=== PATIENT | male | born 1995 | race American Indian/Alaskan Native ===

== ENCOUNTER 2020-01-24 23:06 | Emergency (ER) | payer SELFPAY ==
[2020-01-24 23:11] VITALS: BP 150/79; PULSE 78; TEMP 36.7; O2SAT 96
--- NOTE | 2020-01-24 23:11 | W.ED.GENAD ---
Discharge Plan Disposition Patient Disposition: HOME Condition: Good Discharge Details Chief Complaint: RespSymp Clinical Impression: Cough ED Provider: Eric Greenfield Meds and New Rx's Prescriptions: New benzonatate 100 mg Capsule 100 mg PO TID PRN PRNQty: 20 RF: 0 Continued Jennifer-[place]ilin Gold 344-1,050-1,000 mg Tablet, Effervescent RF: 0 Discharge Instructions Additional Instructions: Since most of your symptoms have resolved and you have no chest pain or shortness of breath with clear lungs and normal oxygen saturation suspect this is just residual cough related to the viral illness you had previously. This may sometimes linger for a couple weeks after the illness resolves. May use Tessalon Perles for cough. Should follow-up with primary care in 2 weeks if not better. Should return to the emergency department if you develop high fever, shortness of breath, chest pain, mental status changes. We will put you on list for care management to help arrange for primary care physician in the area. Referrals: Care Management [Provider Group] Medical Decision Making Patient presenting with residual cough following what sounds like a viral illness. All other symptoms resolved. He is no longer febrile. He has no shortness of breath. He has normal pulse oximetry and vitals except for elevated blood pressure. His lungs are clear throughout. I do not think he has superinfection with pneumonia at this point. He looks well. And this is all just residual cough which may persist for [address] him on Tessalon and refer to care management for primary care referral in 2 weeks if not better. Return to ED if he develops high fevers, shortness of breath, chest pain, mental status changes, other concerns or problems. HPI General Mode of arrival: ambulatory. Date/Time Provider Initiated Documentation: 01/24/20 23:10. Limitations to Documentation: no limitations. Information obtained by: patient, family and RN notes reviewed. HPI Narrative: Patient presents to ED with complaint of cough. Patient reports that 9 days ago he came down with an illness that included fever, congestion, cough, sore throat, vomiting and diarrhea. Those symptoms have resolved and he is left with a residual cough. He denies having any shortness of breath except while having coughing fit. He denies any chest pain. He denies any further fevers or congestion. He stopped smoking 6 months ago. He has no significant past medical history. He is otherwise healthy but does not have a primary care physician. There is no travel outside of [place] and no known exposure to coronavirus. Related Data Home Medications Medication Instructions Recorded Confirmed Jennifer-[place] Gold tab 01/24/20 benzonatate 100 mg PO TID PRN PRN #20 cap 01/24/20 Previous Rx's Medication Instructions Recorded benzonatate 100 mg PO TID PRN PRN #20 cap 01/24/20 Allergies Allergy/AdvReac Type Severity Reaction Status Date / Time No Known Allergies Allergy Unverified 01/24/20 23:14 Review of Systems Narrative: As documented in HPI otherwise negative as below. Const: no fever, chills, weakness Resp: cough; no SOB, pleuritic pain CV: no CP, diaphoresis, edema, syncope GI: no abdominal pain, nausea, vomiting, diarrhea Neuro: no headache, numbness, focal weakness, confusion PFSH Medical History No active medical problems (Acute) Surgical History No significant past surgical history (Acute) Social History Smoking/Tobacco Use Status: Former Tobacco Use Alcohol Intake: never Drug use: Never Substance use type: does not use Do you feel safe at home: Yes Do you feel safe in your relationship?: Yes Exam Narrative Exam Narrative: Vitals: Afebrile. Elevated blood pressure otherwise normal vitals and normal room air pulse oximetry. Const: WDWN male in NAD. HEENT: NC/AT. Normal facial exam. Normal TMs bilaterally. Normal oropharynx. Eyes: Normal conjunctiva and sclera. Neck: Supple. Trachea midline. No adenopathy. Lungs: Normal respiratory effort. Lungs are clear. No wheezing or rhonchi. Cor: RRR without murmur/gallop. Neuro: A+O x 3. Normal speech, mentation, gait. Cranial nerves II - XII grossly intact. No gross motor or sensory deficit.
[2020-01-24] MEDS: Benzonatate 100 MG CAP PO (23:30)
== END 2020-01-24 23:35 | disposition home or self-care (01) ==
LOC: ER 23:49
PROVIDERS: Emergency Provider Emergency Medicine
DX: R05 Cough (principal)
CPT/HCPCS: 99283

== ENCOUNTER 2020-01-29 22:04 | Emergency (ER) | payer SELFPAY ==
[2020-01-29 22:08] VITALS: BP 167/92; PULSE 91; RESP 18; TEMP 36.6; O2SAT 99
--- NOTE | 2020-01-29 22:13 | ED.GENADUL_ITS ---
Discharge Plan Disposition Patient Disposition: HOME Condition: Stable Discharge Details Chief Complaint: GenMedical Clinical Impression: Sinusitis Primary Care Provider: None,None ED Provider: Diaz Kellogg Home Meds and New Rx's Prescriptions: New amoxicillin-pot clavulanate [Augmentin] 875-125 mg tablet 1 tab PO BID Qty: 14 RF: 0 Continued Jennifer-[place] Gold 344-1,050-1,000 mg Tablet, Effervescent RF: 0 benzonatate 100 mg Capsule 100 mg PO TID PRN PRNQty: 20 RF: 0 Discharge Instructions Instructions: Sinusitis (ED) Additional Instructions: if you feel more ill, have difficulty breathing or high fevers return to the emergency department if you are not better after the antibiotic see either your primary care provider or an ears, nose and throat specialist Medical Decision Making 24 yo male with no chronic medical problems and no recent travel comes in with sinus congestion, runny nose and cough without fevers for 4 weeks. Denies any rashes, vomit abdominal pain, urinary symptoms. Is in no distress on exam with clear lung sounds, no murmurs, clear rhinorrhea, normal tm's, pain with percussion over sinuses, eomi. NO skin swelling. Seems most consistent with sinusitis and given over 10 days of symptoms will start augmentin and advised to f/u with pcp or ENT if not better in a week and return precautions given Differential Diagnosis Differential Diagnosis: sinusitis, uri, aom HPI General Mode of arrival: ambulatory . Date/Time Provider Initiated Documentation: 01/29/20 22:06 . Limitations to Documentation: no limitations . Information obtained by: patient . History of Present Illness 24 year old M presents to the emergency department with the chief complaint of cough, described as moderate, Patient started experiencing this week(s) (2) No relieving factors improve symptom(s), No exacerbating factors reported . Patient did receive the following treatments prior to arrival, none Related Data Home Medications Medication Instructions Recorded Confirmed Jennifer-[place] Gold tab 01/24/20 benzonatate 100 mg PO TID PRN PRN #20 cap 01/24/20 amoxicillin-pot clavulanate 1 tab PO BID #14 tab 01/29/20 [Augmentin] Previous Rx's Medication Instructions Recorded benzonatate 100 mg PO TID PRN PRN #20 cap 01/24/20 amoxicillin-pot clavulanate 1 tab PO BID #14 tab 01/29/20 [Augmentin] Allergies Allergy/AdvReac Type Severity Reaction Status Date / Time No Known Allergies Allergy Unverified 01/24/20 23:14 General Stated Complaint: GenMedical ZARINA: 4 Review of Systems All systems reviewed & are unremarkable except as noted in HPI and below Constitutional Constitutional: Denies chills, Denies fever(s) and Denies weakness Cardiovascular Cardiovascular: Denies chest pain Gastrointestinal Gastrointestinal: Denies abdominal pain, Denies nausea and Denies vomiting Musculoskeletal Musculoskeletal: Denies joint swelling Integumentary/Breasts Skin/Breast: Denies rash Neurologic Neurologic: Denies weakness [facility] Social History Smoking/Tobacco Use Status: Former Tobacco Use Alcohol Intake: never Drug use: Never Substance use type: does not use Do you feel safe at home: Yes Do you feel safe in your relationship?: Yes Exam Const General: no acute distress Orientation: alert HENMT Head: normal to inspection Ears: external ears normal General nose exam: external nose normal Mouth: moist mucous membranes Eyes General: appearance normal, both eyes and all related structures Neck Neck: normal visual inspection Resp Effort & Inspection: normal respiratory effort and able to speak in complete sentences Cardio Rate: regular rate Skin General skin exam: no rashes or lesions noted Neuro General: alert and oriented x3 Extrem General: normal to inspection Psych Mental Status: mental status grossly normal Course Vital Signs Vital signs: Vital Signs Temperature 36.6 C 01/29/20 22:08 Pulse 91 H 01/29/20 22:08 Respiratory Rate 18 01/29/20 22:08 Blood Pressure 167/92 H 01/29/20 22:08 Pulse Oximetry 99 01/29/20 22:08 Temperature 36.6 C 01/29/20 22:08 Temperature Source Temporal Artery Scan 01/29/20 22:08 Pulse 91 H 01/29/20 22:08 Respiratory Rate 18 01/29/20 22:08 Blood Pressure 167/92 H 01/29/20 22:08 Pulse Oximetry 99 01/29/20 22:08 Oxygen Delivery Method Room Air 01/29/20 22:08 Oxygen Flow Rate 0 01/29/20 22:08 Pain Level 4 01/29/20 22:08
[2020-01-29] MEDS: Amoxicillin 875/Clav. 125 TAB PO (22:24)
[2020-01-29 22:31] VITALS: BP 142/72
== END 2020-01-29 22:30 | disposition home or self-care (01) ==
PROVIDERS: Emergency Provider Emergency Medicine
DX: J01.90 Acute sinusitis, unspecified (principal)
CPT/HCPCS: 99283

== ENCOUNTER 2020-06-09 14:55 | Emergency (ER) | payer SELFPAY ==
[2020-06-09 15:09] VITALS: BP 143/96; PULSE 72; RESP 18; TEMP 36.8; O2SAT 99
[2020-06-09 15:46] VITALS: BP 128/89; PULSE 71; RESP 18; TEMP 36.4; O2SAT 96
--- NOTE | 2020-06-09 15:47 | W.ED.GENAD ---
Discharge Plan Disposition Patient Disposition: HOME Condition: Stable Discharge Details Chief Complaint: RespSymp Clinical Impression: URI (upper respiratory infection), Seasonal allergies, Patient requested test Primary Care Provider: None,None ED Provider: Tami Coon Home Meds and New Rx's Prescriptions: No Action No Known Home Meds RF: 0 Discharge Instructions Instructions: Upper Respiratory Infection (ED), Allergies (ED) Additional Instructions: Drink plenty of fluids and get plenty of rest. Alternate tylenol and motrin as needed and directed for pain. Take [id number] medication for your allergies or possible early upper respiratory tract infection such as Nasonex, Flonase, Claritin, Zyrtec, Kezia, Sudafed, etc. You will be notified of your COVID-19 testing result when available. You can also register on the online patient portal to find your result and print it for your employer. You can also have the emergency department fax the result to your employer or return to the emergency department for a hard copy of this result if you are unable to print it from home and medical records not available. Follow-up with your primary care doctor in 1 week. Return to the emergency department with any worsening or new concerning symptoms. Stand Alone Forms: PENDING COVID-19 TESTING Discharge Data Discharge Date/Time-TO BE ENTERED AT DEPARTURE: 06/09/20 16:50 Discharge Physician: Tami Coon Medical Decision Making 24yo M w/ no past medical history presents for COVID testing and URI vs allergy symptoms. He appears nontoxic w/ normal vitals. No acute findings on exam. Do not see an indication for additional labs or imaging or acute treatment. He is advised regarding rest, fluids, and over the counter treatments as needed and that he will be informed about his test result when available. Advised to follow up with the primary care doctor for re-evaluation as needed. Usual and customary return precautions given prior to discharge. Medical Records Medical records reviewed: Yes I reviewed the patient's medical records. HPI General Mode of arrival: ambulatory. Date/Time Provider Initiated Documentation: 06/09/20 15:07. Limitations to Documentation: no limitations. Information obtained by: patient. 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 He states he had exposure to the recently diagnosed COVID positive patient at the [facility] this week. Pt had a COVID test at that time which is read as negative. He states he woke up this morning with stuffy nose, nasal congestion and post nasal drip and called his stewarding supervisor who advised him to not come to work and to go to the emergency department for repeat COVID testing. Patient states his symptoms feel similar to his seasonal allergies. Patient denies any fever, headache, neck pain, sore throat, ear pain, chest pain, shortness of breath, vomiting, diarrhea, abdominal pain or urinary symptoms. Related Data Home Medications Medication Instructions Recorded Confirmed Unknown [No Known Home Meds] 06/09/20 06/09/20 Allergies Allergy/AdvReac Type Severity Reaction Status Date / Time bee venom protein (honey bee) Allergy Unverified 06/09/20 15:37 cat dander AdvReac Itching Unverified 06/09/20 15:37 mold AdvReac Unverified 06/09/20 15:37 General Stated Complaint: RespSymp ZARINA: 4 Review of Systems All systems reviewed & are unremarkable except as noted in HPI and below Constitutional Constitutional: Reports as per HPI, Denies chills and Denies fever(s) Eyes Eyes: Denies blurry vision ENT Ears, Nose, Mouth, and Throat: Denies dizziness, Reports nasal congestion, Reports nasal discharge, Reports post nasal drip, Denies sore throat and Denies throat swelling Cardiovascular Cardiovascular: Denies chest pain and Denies dyspnea Respiratory Respiratory: Denies cough and Denies dyspnea Gastrointestinal Gastrointestinal: Denies abdominal pain, Denies diarrhea and Denies vomiting Genitourinary Genitourinary: Denies hematuria and Denies dysuria Musculoskeletal Musculoskeletal: Denies back pain and Denies numbness Integumentary/Breasts Skin/Breast: Denies lesions and Denies rash Neurologic Neurologic: Denies dizziness, Denies localized weakness and Denies numbness Allergic/Immunologic Allergic/Immunologic: Denies throat swelling [facility] Social History Smoking/Tobacco Use Status: Former Tobacco Use Alcohol Intake: never Drug use: Never Substance use type: does not use Do you feel safe at home: Yes Do you feel safe in your relationship?: Yes Exam Const General: cooperative and healthy appearing Orientation: alert and awake HENMT Head: normal to inspection Ears: hearing grossly normal bilaterally, external ears normal and TM's normal bilaterally General nose exam: external nose normal Face and sinus: normal facial exam Mouth: oral mucosae normal Teeth and gingiva: dentition normal Throat: posterior oropharynx normal Eyes General: appearance normal, both eyes and all related structures Eyelids: eyelids normal EOM: EOM intact bilaterally Neck Neck: normal visual inspection Lymphatic: no lymphadenopathy noted Chest Chest: normal inspection of the chest Resp Effort & Inspection: normal respiratory effort and able to speak in complete sentences Auscultation: clear to auscultation bilaterally Cardio Rate: regular rate Rhythm: regular rhythm GI Inspection: normal to inspection Palpation: soft, not firm, no guarding, no hepatosplenomegaly, no masses and nontender Auscultation: normal bowel sounds Skin General skin exam: no rashes or lesions noted Neuro General: patient alert and patient awake Cognition: normal cognition Speech: speech normal Gait: normal gait Motor: muscle tone normal throughout Sensory Exam: no sensory deficits noted Extrem General: normal to inspection, full ROM and capillary refill normal Psych Appearance: grossly normal Mental Status: mental status grossly normal Speech and Movement: speech and movement normal Affect: normal affect Thought Process: normal Course Vital Signs Vital signs: Vital Signs Temperature 98.2 F 06/09/20 15:09 Pulse 72 06/09/20 15:09 Respiratory Rate 18 06/09/20 15:09 Blood Pressure 143/96 H 06/09/20 15:09 Pulse Oximetry 99 06/09/20 15:09 Temperature 98.2 F 06/09/20 15:09 Temperature Source Skin 06/09/20 15:09 Pulse 72 06/09/20 15:09 Respiratory Rate 18 06/09/20 15:09 Respiratory Effort Non-Labored 06/09/20 15:42 Respiratory Depth Normal 06/09/20 15:42 Blood Pressure 143/96 H 06/09/20 15:09 Pulse Oximetry 99 06/09/20 15:09 Oxygen Delivery Method Room Air 06/09/20 15:09 Oxygen Flow Rate 0 06/09/20 15:09 Pain Level 0 06/09/20 15:09 Lab/Test Results Lab/Test Results: Laboratory Tests Range/Units 06/09/20 15:25 COVID-19 PCR Cancelled Nasopharyn COVID-19 PCR Cancelled Ref Test Perform Site Cancelled
--- NOTE | 2020-06-09 16:50 | NUR.NOTE ---
Nursing Note: copied referal to caremanagement 06/09/20
[2020-06-15 22:36] LABS: SARS-CoV-2 RNA Undetected (Undetected); SARS-CoV-2 Specimen Source Nasopharynx
--- NOTE | 2020-06-16 08:57 | ED.FU.B_ITS ---
Date of service: 06/16/20 Time of Service: 08:59 Spoke with patient and relayed negative Covid results. Patient verbalized understanding and requests work note to return back to work. Will write patient a note to return back to work. He also requests a paper copy of the results and I will leave this at the lockstitch front maker of the ER if patient wants to come and pick it up.
== END 2020-06-09 16:50 | disposition home or self-care (01) ==
LOC: ER 16:51
PROVIDERS: Emergency Provider Physician Assistant
DX: J06.9 Acute upper respiratory infection, unspecified (principal); J30.2 Other seasonal allergic rhinitis; Z20.828 Contact with and (suspected) exposure to other viral communicable diseases
CPT/HCPCS: 99282; U0003

== ENCOUNTER 2022-09-18 09:58 | Outpatient (CLI) | payer BC, SELFPAY ==
--- NOTE | 2022-09-18 09:45 | RT.EKG_ITS ---
APPROVED REPORT Exam: Resting ECG Reason for Exam: LEFT SIDED CHEST PAIN Patient Location: O HR:56 bpm ECG Measurements Heart Rate 56 AXIS ND 168 P 12 QRSd 99 QRS 64 QT 383 T 35 QTc 370 Conclusion Sinus rhythm...normal P axis, V-rate 50- 99 Normal Electrocardiogram
== END 2022-09-18 09:59 | disposition home or self-care (01) ==
LOC: DI.CM 09:59
PROVIDERS: Visit Provider Physician Assistant
DX: R07.9 Chest pain, unspecified (principal)
CPT/HCPCS: 93010

== ENCOUNTER 2022-09-19 08:09 | Emergency (ER) | payer BC, SELFPAY ==
--- NOTE | 2022-09-19 08:00 | RT.EKG_ITS ---
APPROVED REPORT Exam: Resting ECG Reason for Exam: chest pain Patient Location: E HR:71 bpm ECG Measurements Heart Rate 71 AXIS DE 171 P 21 QRSd 95 QRS 61 QT 343 T 53 QTc 373 Conclusion Sinus rhythm...normal P axis, V-rate 60- 99 S1Q3
[2022-09-19 08:13] VITALS: BP 149/90; PULSE 77; RESP 15; TEMP 36.8; O2SAT 99
[2022-09-19 08:16] VITALS: O2SAT 99
[2022-09-19 08:17] VITALS: BP 149/90; PULSE 70; PULSE 71; RESP 11; RESP 15; O2SAT 98
[2022-09-19 08:20] VITALS: PULSE 76; RESP 12; O2SAT 99
[2022-09-19 08:30] VITALS: PULSE 79; RESP 19; O2SAT 98
--- NOTE | 2022-09-19 08:30 | DI.RAD_ITS ---
Exam(s) XR CHEST 2V PA LATERAL EXAM: XR CHEST 2V PA LATERAL CLINICAL HISTORY: chest pain TECHNIQUE: 2D digital imaging was performed of the chest. Two images were obtained. PA and lateral views were obtained. COMPARISON: No exams were available for comparison FINDINGS: MEDIASTINUM: Normal. HEART: Normal. PULMONARY VASCULATURE: Normal. LUNGS: Clear. PLEURAL SPACE: No pleural effusion or pneumothorax. BONE:Within normal limits for the patient's age. OTHER FINDINGS:Normal. IMPRESSION: No acute pulmonary findings. DATA REPOSITORY: RADIATION DOSE DELIVERED:
--- NOTE | 2022-09-19 08:38 | ED.GENADUL_ITS ---
Discharge Plan Disposition Patient Disposition: HOME Condition: Improving Discharge Details Clinical Impression: Atypical chest pain, Respiratory tract infection Primary Care Provider: None,None ED Provider: Jerry Rahman Home Meds and New Rx's Prescriptions: Continued amoxicillin-pot clavulanate 875-125 mg tablet 1 tab PO Q12H Qty: 14 0RF benzonatate 100 mg capsule 100 mg PO TID PRN (Reason: cough) Qty: 14 0RF azithromycin 250 mg tablet See Rx Instructions PO .COMPLEX Qty: 6 0RF Rx Instructions: For 250 mg dose pack: take 500 mg today (day 1), then 250 mg for 4 days (days 2-5) PO Discharge Instructions Instructions: Chest Pain (ED) Additional Instructions: At this time we are not seeing any worrisome findings on your EKG or your lab work. If you develop any new or significant worsening of symptoms it is very important that you return to the emergency department for further evaluation. Please continue the recommendation to follow-up and establish primary care provider for further monitoring of your blood pressure and other medical needs. Referrals: [facility] [Provider Group] Discharge Data Discharge Date/Time-TO BE ENTERED AT DEPARTURE: 09/19/22 09:53 Medical Decision Making Patient presenting to the emergency department for chief complaint of chest pain. Patient states that actually his chest pain has been resolving this morning but due to his 's concern he is here for evaluation. He does state that he was seen in the urgent care yesterday for this and they saw EKG changes that made them encourage him to have an emergency evaluation with blood work. They did start patient on antibiotics and antitussive. Patient has history of slight hypertension which is mostly improved since he lost weight. Otherwise patient has significant family medical history for cardiac but otherwise unremarkable personally. Patient reports history of greater than 3 weeks of upper respiratory illness with initially testing over a week ago and was COVID- positive. He ran out of test on Friday which he was still positive at that time. Chest pain began just 3 days ago otherwise he stated it felt like the other times he had COVID or general viral illnesses. Physical exam is unremarkable with no worrisome findings. Given that patient has recently had COVID we will perform EKG and cardiac work-up and include D-dimer. Patient wells score is negative but will do D-dimer given recent COVID illness. We will also perform a BNP to evaluate for any sort of heart strain secondary to concern of potential PE. Please see physician interpretation for full interpretation of EKG but patient is in sinus rhythm and does not meet acute criteria for STEMI. Reviewed patient's labs and CBC is unremarkable, D-dimer is negative, CMP is also unremarkable, negative troponin, BNP of 21. Still pending chest x-ray results. Patient remained stable. Given that patient has had chest pain for 3 days with it now starting to resolve I do not feel that a second troponin is needed. Reviewed chest x-ray and radiologist interpretation and patient has no acute pulmonary findings. Patient still endorsing that he is pain-free. I feel this is reassuring and that patient can be safely discharged. Did discuss with patient follow-up with primary care provider which she states he already has paperwork for [facility] and is in process of returning that to them to establish a follow-up. Patient encouraged to continue to monitor symptoms and return immediately for any new or worsening symptoms. After discussion of diagnosis and plan of care patient has no further needs, questions, or concerns and states clear understanding to return to the emergency department for any worsening symptoms. This documentation was generated using [employer] system, please disregard any oddities of phrase or misspellings. Medical Records Medical records reviewed: Yes I reviewed the patient's medical records. Imaging Data Radiologic Study: Attestation: I personally reviewed and interpreted this imaging study as follows: Imaging: X-Ray Radiologist's impression: FINDINGS: MEDIASTINUM: Normal. HEART: Normal. PULMONARY VASCULATURE: Normal. LUNGS: Clear. PLEURAL SPACE: No pleural effusion or pneumothorax. BONE:Within normal limits for the patient's age. OTHER FINDINGS:Normal. IMPRESSION: No acute pulmonary findings. Lab Data Lab results reviewed: Yes I reviewed the patient's lab results. HPI General Mode of arrival: ambulatory . Date/Time Provider Initiated Documentation: 09/19/22 08:17 . Limitations to Documentation: no limitations . Information obtained by: RN notes reviewed and old records reviewed . History of Present Illness 27 year old M presents to the emergency department with the chief complaint of chest pain , described as mild, Quality is described as aching and other (burning ), and is localized to the chest. Patient neck. Patient started experiencing this day(s) (3) and it has been constant (improved today). No relieving factors improve symptom(s), No exacerbating factors reported . Patient did receive the following treatments prior to arrival, none Related Data Home Medications Medication Instructions Recorded Confirmed amoxicillin 875 mg-potassium 1 tab PO Q12H #14 tabs 09/18/22 09/19/22 clavulanate 125 mg tablet azithromycin 250 mg tablet See Rx Instructions PO .COMPLEX #6 09/18/22 09/19/22 tabs benzonatate 100 mg capsule 100 mg PO TID PRN cough #14 caps 09/18/22 09/19/22 Previous Rx's Medication Instructions Recorded amoxicillin 875 mg-potassium 1 tab PO Q12H #14 tabs 09/18/22 clavulanate 125 mg tablet azithromycin 250 mg tablet See Rx Instructions PO .COMPLEX #6 09/18/22 tabs benzonatate 100 mg capsule 100 mg PO TID PRN cough #14 caps 09/18/22 Allergies Allergy/AdvReac Type Severity Reaction Status Date / Time bee venom protein (honey bee) Allergy Unverified 09/19/22 08:20 cat dander AdvReac Itching Unverified 09/19/22 08:20 mold AdvReac Unverified 09/19/22 08:20 General Stated Complaint: Chest Pain ZARINA: 2 Review of Systems Constitutional Constitutional: Reports chills, Denies fever(s) and Denies malaise ENT Ears, Nose, Mouth, and Throat: Reports nasal congestion and Denies sore throat Cardiovascular Cardiovascular: Reports as per HPI, Reports chest pain, Denies chest pain with activity, Denies syncope, Denies edema, Denies irregular heart rhythm, Denies leg edema, Denies lightheadedness, Denies palpitations, Denies dyspnea and Denies dyspnea on exertion Respiratory Respiratory: Denies cough, Denies hemoptysis, Denies dyspnea and Denies dyspnea on exertion Gastrointestinal Gastrointestinal: Denies abdominal pain, Denies nausea and Denies vomiting Neurologic Neurologic: Denies syncope Psychiatric Psychiatric: Denies anxiety Endocrine Endocrine: Denies cold intolerance, Denies heat intolerance and Denies palpitations PFSH All Active Problems (Updated 09/19/22 @ 09:45 by Jerry Rahman NP) Atypical chest pain (Acute) Respiratory tract infection (Acute) Medical History (Updated 09/19/22 @ 09:45 by Jerry Rahman NP) No active medical problems Surgical History No significant past surgical history Social History Smoking/Tobacco Use Status: Current every day Tobacco Type: smokeless tobacco Smoking risk assessment performed?: Yes Alcohol Intake: never Drug use: Never Substance use type: does not use Do you feel safe at home: Yes Do you feel safe in your relationship?: Yes Exam Const General: cooperative, healthy appearing, comfortable, no acute distress, not diaphoretic and not ill appearing Nutritional Appearance: average body habitus Orientation: alert, awake and oriented x3 Limitations: mental status not altered Neck Neck: normal visual inspection, full ROM, trachea midline, supple and no anterior neck swelling Thyroid: thyroid normal Carotids: normal carotid upstroke and no bruits Chest Chest: normal inspection of the chest Resp Effort & Inspection: normal respiratory effort and able to speak in complete sentences Auscultation: clear to auscultation bilaterally Cardio Jugular venous pressure: no JVD Palpation: normal PMI Rate: regular rate Rhythm: regular rhythm Heart Sounds: S1 normal, S2 normal, no click, no gallops, no murmurs and no rubs Bruits: no abdominal aortic bruits and no carotid bruits Pulses: radial pulses present bilaterally 2+ GI Inspection: normal to inspection Palpation: soft, no aortic enlargement, no pulsatile masses and nontender Auscultation: normal bowel sounds Skin General skin exam: no rashes or lesions noted Neuro General: patient alert, patient awake, patient oriented x3, tone normal and moves all extremities Course Vital Signs Vital signs: Vital Signs Temperature 36.8 C 09/19/22 08:13 Pulse 77 09/19/22 08:13 Respiratory Rate 15 09/19/22 08:13 Blood Pressure 149/90 H 09/19/22 08:13 Pulse Oximetry 99 09/19/22 08:13 Temperature 36.8 C 09/19/22 08:13 Temperature Source Temporal Artery Scan 09/19/22 08:13 Pulse 77 09/19/22 08:13 Respiratory Rate 11 L 09/19/22 08:17 Respiratory Effort Non-Labored 09/19/22 08:17 Respiratory Depth Normal 09/19/22 08:17 Respiratory Pattern Normal 09/19/22 08:17 Blood Pressure 149/90 H 09/19/22 08:13 Blood Pressure Position Sitting 09/19/22 08:13 Pulse Oximetry 99 09/19/22 08:13 Oxygen Delivery Method Room Air 09/19/22 08:13 Oxygen Flow Rate 0 09/19/22 08:13 Pain Level 0 09/19/22 08:17
[2022-09-19 08:40] VITALS: PULSE 91; RESP 18; O2SAT 98
[2022-09-19 08:43] LABS: Abs Immature Grans 0.02 10^3/uL (0.0-0.06); Absolute Basophil Count 0.03 10^3/uL (0.0-0.2); Absolute Lymphocyte Count 2.74 10^3/uL (1.2-3.4); Absolute Monocyte Count 0.51 10^3/uL (0.1-0.8); Absolute Neutrophil Count 2.79 10^3/uL (1.2-6.7); Basophils % 0.5; Eosinophils % 7.6; Immature Grans % 0.3; Lymphocytes % 41.6; MCHC 33.3 % (32.0-36.0); MCV 84 fL (80-95); MPV 10.3 fL (8.0-11.0); Monocytes % 7.7; Neutrophils % 42.3; Platelet Count 317 10^3/uL (130-400); RBC 5.35 10^6/uL (4.36-5.78); RDW 11.9 % (11.8-14.1); WBC 6.59 10^3/uL (4.4-10.8)
[2022-09-19 09:14] LABS: ALT 25 U/L (16-63); AST 12 U/L (15-37); Albumin 3.8 g/dL (3.4-5.0); Alkaline Phosphatase 86 U/L (46-116); Anion Gap 3.7 mmol/L (3-11); BUN 16 mg/dL (7-18); Bilirubin, Total 0.3 mg/dL (0.2-1.0); CO2 30.3 mmol/L (21.0-32.0); CREATININE 1.1 mg/dL (0.70-1.30); Calcium 9.6 mg/dL (8.5-10.1); Chloride 107 mmol/L (98-107); Estimated GFR 93.77 (mL/min/1.73m2); Glucose 83 mg/dL (74-106); Magnesium 2.2 mg/dL (1.8-2.4); NT-proBNP 21 pg/mL (<300); Potassium 4.5 mmol/L (3.5-5.1); Sodium 141 mmol/L (136-145); Total Protein 8.1 g/dL (6.4-8.2); Troponin I < 50 ng/L (<or=60)
[2022-09-19 09:15] LABS: D-Dimer 391 ng/mlFEU (<500)
== END 2022-09-19 09:53 | disposition home or self-care (01) ==
PROVIDERS: Emergency Provider Nurse Practitioner Family
DX: R07.89 Other chest pain (principal); J98.8 Other specified respiratory disorders; Z86.16 Personal history of COVID-19
CPT/HCPCS: 36415; 80053; 93005; 99284; 71046; 83735; 83880; 84484; 85025; 85379; 93010

== ENCOUNTER 2025-07-21 04:21 | Outpatient (CLI) | payer BC, SELFPAY ==
[2025-07-21 08:52] LABS: Calculated LDL 147 mg/dL (<100); Cholesterol 215 mg/dL (<200); HDL Cholesterol 40 mg/dL (>or=40); Triglyceride 141 mg/dL (<150)
== END 2025-07-21 04:22 | disposition home or self-care (01) ==
LOC: LBO 04:21
PROVIDERS: PCP Family Medicine; Visit Provider Family Medicine
DX: Z13.6 Encounter for screening for cardiovascular disorders (principal)
CPT/HCPCS: 36415; 80061